=== PATIENT | male | born 1970 | race Caucasian/White ===

== ENCOUNTER 2024-07-19 20:16 | Emergency (ER) | payer BC ==
--- OUTSIDE RECORDS SUMMARY | 2024-07-19 20:22 | XMS REPORT | Continuity of Care Document ---
Author Name Unknown Address [address] [facility] [address] [place] [address] [facility] Address [address] [facility] [place] [address] Care Team Providers Care Last Sorter Name Role Phone Cody Mcgowan MD Primary Care Physician [phone] LAB90 Attending Clinician Unavailable LEODAN MONTENEGRO Attending Clinician Unavailable VIOLETTE STEPHENS Attending Clinician Unavailable MD LIZA Attending Clinician Unavailab CARLITOS Man Attending Clinician Unavailab ALMA Darling Attending Clinician Unavaila ble LAB47 Attending Clinician Unavailable EMERSON BENITEZ Attending Clinician Unavailab isaac Duncan Attending Clinician UnavailAmanda Avelar Attending Clinician [phone] Leonard Rodriguez Attending Clinician Unavailable Amanda Fam Attending Clinician Unavailab Leodan Fofana Attending Clinician [phone] Tony GONZALES, Jessica Attending Clinicia n SWAB, CK COVID SELF Attending Clinician Unavaila ble [id number] Attending Clinician Unavailable Jim GONZALES, Kristopher Madden Attending Clinician [phone] ISIDRA CROSS Attending Clinician Unavail able Isidra Cross PA-C Attending Clinician [phone] [id number] Attending Clinician Unavailable TESTING, PL JOHN Attending Clinician UnavailKatheryn Mo PA-C Attending Clinician [phone] Violette Stephens MD Attending Clinician [phone] KATHERYN PORTILLO Attending Clinician Unavailable HEIDI_Shashank_Marium_ Admitting Clinician UnavailAmanda Avelar Admitting Clinician Unavailab le Physician, No Primary or Family Admitting Clinic evonne Unavailable Payers Payer Name Policy Type Policy Number Effective Date Expirati on Date Source BCBS 2 [id number] 2019 00:00[place] [id number] 2019 00:00:00 Problems Condition Name Condition Details Condition Category Status Onset Date Resolution Date Last Treatment Date Treating Clinician Comments Source Prediabete s Prediabete s Disease Active 2022-04 2- 00:00: 00 Tash Macybold - Externa l Closed fracture of calcaneus bone of right foot Closed Fracture of Calcaneus Bone of Right Foot Problem Active 8-15 00:00: 00 [facility] Acquired trigger finger of right ring finger Acquired Trigger Finger of Right Ring Finger Problem Active 5-19 00:00: 00 [facility] Acquired trigger finger Acquired Trigger Finger Problem Active 2-21 00:00: 00 [facility] Trigger thumb of right hand Trigger Thumb of Right Hand Problem Active 2-18 00:00: 00 [facility] Overweight (BMI 25.0-29.9) Overweight (BMI 25.0-29.9) Disease Active 12-21 00:00: 00 Tash Whitmore - Externa l Low back strain Low Back Strain Problem Active 07-16 00:00: 00 [facility] Fracture of bone Fracture of Bone Problem Active 04-30 00:00: 00 [facility] Closed fracture of base of neck of femur Closed Fracture of Base of Neck of Femur Problem Active 2016-04 00:00: 00 [facility] Lateral epicondyli tis Lateral Epicondyli tis Problem Active 2012-04 00:00: 00 [facility] Allergies, Adverse Reactions, Alerts Allergy Name Allergy Type Status Severity Reaction(s) Onset Date Inactive Date Treating Clinician Comments Source meloxica m DA Active NM ITCHING, RASH. 12-24 00:00: 00 [facility] meloxica m DA Active NM ITCHING, RASH. 12-05 00:00: 00 [facility] Meloxica m Propensi ty to adverse reaction s Active 12-21 00:00: 00 Flushed and anxious feeling Tash Whitmore Meloxica m Propensi ty to adverse reaction s Active 12-21 00:00: 00 Flushed and anxious feeling Tash Galvana l meloxica m DA Active SV HIVES 2014-04 00:00: 00 [facility] Meloxica m Allergy to substanc e Active [facility] No Known Drug Allergie s MA Active UNKNOWN [facility] Social History Social Habit Start Date Stop Date Quantity Comments Source Sexual orientation 2020-03-01 09:58:04 Heterosexual (finding) Tash Whitmore - External History of tobacco use Cigar Smoker Tash Whitmore - External History SDOH Alcohol Frequency Tash tran - External History SDOH Alcohol Std Drinks Tash adames - External History SDOH Alcohol Binge Tash Whitmore - External Exposure to SARS-CoV-2 (event) Yes Tash adames Alcohol intake 2023-04-12 00:00:00 2023-04-12 00:00:00 Current drinker of alcohol (finding) Tash Whitmore - [place] History of Social function 2022-09-15 00:00:00 2022-09-15 00:00:00 Tash Whitmore - External Tobacco use and exposure 2022-09-11 00:00:00 2022-09-11 00:00:00 Smokeless tobacco non-user Tash Whitmore - External Alcohol Comment 2022-09-11 00:00:00 2022-09-11 00:00:00 social Tash Whitmore - External Tobacco Comment 2022-09-11 00:00:00 2022-09-11 00:00:00 special occ. Tash Whitmore - [place] Sex Assigned At 1970 00:00:00 1970 00:00:00 M Tash Whitmore - [place] Smoking Status Start Date Stop Date Source Light tobacco smoker 2022-09-11 00:00:00 Tash Whitmore - External Medications Ordered Medication Name Filled Medication Name Start Date Stop Date Current Medication? Ordering Clinician Indication Dosage Frequency Signature (SIG) Comments Components Source Orphenadrin e Citrate CR 100 MG oral Tablet 12 Hour Sustained Release 2022-04 14:25: 05 04-12 00:00 :00 No RX by other MD Tash knowles Zolpidem Tartrate 10 MG oral Tablet 2022-04 14:25: 05 04-12 00:00 :00 No 10mg Take 1 tablet (10 mg total) by mouth daily. Tash knowles Anastrozole 1 MG oral Tablet 2022-04 14:24: 33 04-12 00:00 :00 No TAKE 1/2 TAB BY MOUTH 24-48 HOURS AFTER WEEKLY INJECTION. Tash knowles Omeprazole 20 MG oral Delayed Release Capsule 09-26 00:00: 00 04-12 00:00 :00 No [id number] 20mg Take 1 capsule (20 mg total) by mouth 2 times daily for 14 days Tash knowles Bismuth Subsalicyla te 262 MG oral Tablet 09-26 00:00: 00 04-12 00:00 :00 No [id number] 1{tbl} Take 1 tablet by mouth 2 times daily Tash knowles Benzonatate (Tessalon Perles) 100 MG oral Capsule - 00:00: 00 Yes [id number] 100mg [id number] 3D Take 1 capsule (100 mg total) by mouth 3 times daily as needed for cough Tash knowles Cetirizine- Pseudoephed rine 5-120 MG oral Tablet 12 Hour Sustained Release 11-29 00:00: 00 Yes [id number] 1{tbl} Take 1 tablet by mouth 2 times daily Tash knowles Celecoxib 200 MG oral Capsule 05-09 00:00: 00 Yes [id number] TAKE 1 CAPSULE(20 0 MG) BY MOUTH TWICE DAILY Tash knowles Celecoxib 200 MG oral Capsule 2020-04- 00:00: 00 Yes [id number] TAKE 1 CAPSULE(20 0 MG) BY MOUTH TWICE DAILY Tash Whitmore methylPREDN ISolone 4 MG oral Tablet Therapy Pack 2020-04 00:00: 00 Yes [id number] 1{gamaliel} Take 1 gamaliel by mouth See Admin Instructio ns Use as directed Tash Whitmore Celecoxib (CeleBREX) 200 MG oral Capsule 2020-04 00:00: 00 Yes [id number] 200mg Take 1 capsule (200 mg total) by mouth 2 times daily Tash Whitmore Pantoprazol e Sodium 20 MG oral Tablet Delayed Response 2020-04 00:00: 00 04-12 00:00 :00 No [id number] TAKE 1 TABLET BY MOUTH EVERY DAY Tash knowles FLUTICASONE PROPIONATE, NASAL, 50 MCG/ACT nasal Suspension 12-03 00:00: 00 Yes [id number] 50ug Use 1 spray (50 mcg total) in each nostril daily Tash knowles Pantoprazol e Sodium 20 MG oral Tablet Delayed Response 12-03 00:00: 00 Yes [id number] 20mg Take 1 tablet (20 mg total) by mouth daily Tash Whitmore tramadol 50 mg tablet 1 PO Q 4HRS PRN PAIN tramadol 50 mg tablet 1 PO Q 4HRS PRN PAIN 2016-04 00:00: 00 No tramadol 50 mg tablet 1 PO Q 4HRS PRN PAIN [facility] tramadol 50 mg tablet 1 PO Q 4HRS PRN PAIN tramadol 50 mg tablet 1 PO Q 4HRS PRN PAIN 2016-04 00:00: 00 No tramadol 50 mg tablet 1 PO Q 4HRS PRN PAIN [facility] tramadol 50 mg tablet 1 PO Q 4HRS PRN PAIN tramadol 50 mg tablet 1 PO Q 4HRS PRN PAIN 2016-04 00:00: 00 No tramadol 50 mg tablet 1 PO Q 4HRS PRN PAIN [facility] tramadol 50 mg tablet 1 PO Q 4HRS PRN PAIN tramadol 50 mg tablet 1 PO Q 4HRS PRN PAIN 2016-04 00:00: 00 No tramadol 50 mg tablet 1 PO Q 4HRS PRN PAIN [facility] tramadol 50 mg tablet 1 PO Q 4HRS PRN PAIN tramadol 50 mg tablet 1 PO Q 4HRS PRN PAIN 2016-04 00:00: 00 No tramadol 50 mg tablet 1 PO Q 4HRS PRN PAIN [facility] tramadol 50 mg tablet 1 PO Q 4HRS PRN PAIN tramadol 50 mg tablet 1 PO Q 4HRS PRN PAIN 2016-04 00:00: 00 No tramadol 50 mg tablet 1 PO Q 4HRS PRN PAIN [facility] tramadol 50 mg tablet 1 PO Q 4HRS PRN PAIN tramadol 50 mg tablet 1 PO Q 4HRS PRN PAIN 2016-04 00:00: 00 No tramadol 50 mg tablet 1 PO Q 4HRS PRN PAIN [facility] Voltaren 1 % topical gel apply topically, pea sized amt, to left elbow, 4X/day, not to exceed 8gm/day Voltaren 1 % topical gel apply topically, pea sized amt, to left elbow, 4X/day, not to exceed 8gm/day 2012-04 00:00: 00 No Voltaren 1 % topical gel apply topically, pea sized amt, to left elbow, 4X/day, not to exceed 8gm/day [facility] Voltaren 1 % topical gel apply topically, pea sized amt, to left elbow, 4X/day, not to exceed 8gm/day Voltaren 1 % topical gel apply topically, pea sized amt, to left elbow, 4X/day, not to exceed 8gm/day 2012-04 00:00: 00 No Voltaren 1 % topical gel apply topically, pea sized amt, to left elbow, 4X/day, not to exceed 8gm/day [facility] Voltaren 1 % topical gel apply topically, pea sized amt, to left elbow, 4X/day, not to exceed 8gm/day Voltaren 1 % topical gel apply topically, pea sized amt, to left elbow, 4X/day, not to exceed 8gm/day 2012-04 00:00: 00 No Voltaren 1 % topical gel apply topically, pea sized amt, to left elbow, 4X/day, not to exceed 8gm/day [facility] Voltaren 1 % topical gel apply topically, pea sized amt, to left elbow, 4X/day, not to exceed 8gm/day Voltaren 1 % topical gel apply topically, pea sized amt, to left elbow, 4X/day, not to exceed 8gm/day 2012-04 00:00: 00 No Voltaren 1 % topical gel apply topically, pea sized amt, to left elbow, 4X/day, not to exceed 8gm/day [facility] Voltaren 1 % topical gel apply topically, pea sized amt, to left elbow, 4X/day, not to exceed 8gm/day Voltaren 1 % topical gel apply topically, pea sized amt, to left elbow, 4X/day, not to exceed 8gm/day 2012-04 00:00: 00 No Voltaren 1 % topical gel apply topically, pea sized amt, to left elbow, 4X/day, not to exceed 8gm/day [facility] Voltaren 1 % topical gel apply topically, pea sized amt, to left elbow, 4X/day, not to exceed 8gm/day Voltaren 1 % topical gel apply topically, pea sized amt, to left elbow, 4X/day, not to exceed 8gm/day 2012-04 00:00: 00 No Voltaren 1 % topical gel apply topically, pea sized amt, to left elbow, 4X/day, not to exceed 8gm/day [facility] Voltaren 1 % topical gel apply topically, pea sized amt, to left elbow, 4X/day, not to exceed 8gm/day Voltaren 1 % topical gel apply topically, pea sized amt, to left elbow, 4X/day, not to exceed 8gm/day 2012-04 00:00: 00 No Voltaren 1 % topical gel apply topically, pea sized amt, to left elbow, 4X/day, not to exceed 8gm/day [facility] azithromyci n 250 mg tablet TAKE 2 TABLETS BY MOUTH FOR 1 DAY THEN TAKE 1 TABLET BY MOUTH DAILY FOR 4 DAYS THEREAFTER azithromyci n 250 mg tablet TAKE 2 TABLETS BY MOUTH FOR 1 DAY THEN TAKE 1 TABLET BY MOUTH DAILY FOR 4 DAYS THEREAFTER No azithromyc in 250 mg tablet TAKE 2 TABLETS BY MOUTH FOR 1 DAY THEN TAKE 1 TABLET BY MOUTH DAILY FOR 4 DAYS THEREAFTER [facility] bromphenira mine-pseudo ephedrine-D M 2 mg-30 mg-10 mg/5 mL oral syrup TAKE 10 ML BY MOUTH 4 TIMES DAILY NEEDED bromphenira mine-pseudo ephedrine-D M 2 mg-30 mg-10 mg/5 mL oral syrup TAKE 10 ML BY MOUTH 4 TIMES DAILY NEEDED No bromphenir amine-pseu doephedrin e-DM 2 mg-30 mg-10 mg/5 mL oral syrup TAKE 10 ML BY MOUTH 4 TIMES DAILY NEEDED [facility] cephalexin 500 mg capsule cephalexin 500 mg capsule No cephalexin 500 mg capsule [facility] Clenpiq 10 mg-3.5 gram-12 gram/160 mL oral solution INSTRUCTION GIVEN TO PATIENT IN CLINIC. USE DIRECTED BY PROVIDER DURING OFFICE VISIT. Clenpiq 10 mg-3.5 gram-12 gram/160 mL oral solution INSTRUCTION GIVEN TO PATIENT IN CLINIC. USE DIRECTED BY PROVIDER DURING OFFICE VISIT. No Clenpiq 10 mg-3.5 gram-12 gram/160 mL oral solution INSTRUCTIO N GIVEN TO PATIENT IN CLINIC. USE DIRECTED BY PROVIDER DURING OFFICE VISIT. [facility] doxycycline hyclate 100 mg tablet TAKE 1 TABLET BY MOUTH 2 TIMES DAILY doxycycline hyclate 100 mg tablet TAKE 1 TABLET BY MOUTH 2 TIMES DAILY No doxycyclin e hyclate 100 mg tablet TAKE 1 TABLET BY MOUTH 2 TIMES DAILY [facility] hydrocodone 5 mg-acetamin ophen 325 mg tablet hydrocodone 5 mg-acetamin ophen 325 mg tablet No hydrocodon e 5 mg-acetami nophen 325 mg tablet [facility] hydrocodone 7.5 mg-acetamin ophen 325 mg tablet Take 1 tablet every 6 hours by oral route as needed. hydrocodone 7.5 mg-acetamin ophen 325 mg tablet Take 1 tablet every 6 hours by oral route as needed. No hydrocodon e 7.5 mg-acetami nophen 325 mg tablet Take 1 tablet every 6 hours by oral route as needed. [facility] methocarbam ol 500 mg tablet TAKE 1 TABLET BY MOUTH EVERY 8 HOURS NEEDED FOR MUSCLE SPASMS methocarbam ol 500 mg tablet TAKE 1 TABLET BY MOUTH EVERY 8 HOURS NEEDED FOR MUSCLE SPASMS No methocarba mol 500 mg tablet TAKE 1 TABLET BY MOUTH EVERY 8 HOURS NEEDED FOR MUSCLE SPASMS [facility] methylpredn isolone 4 mg tablets in a dose pack USE DIRECTED methylpredn isolone 4 mg tablets in a dose pack USE DIRECTED No methylpred nisolone 4 mg tablets in a dose pack USE DIRECTED [facility] Paxlovid 300 mg (150 mg x 2)-100 mg tablets in a dose pack (EUA) TAKE 2 NIRMATRELVI R TABLETS AND 1 RITONAVIR TABLET TOGETHER BY MOUTH TWICE DAILY FOR 5 DAYS Paxlovid 300 mg (150 mg x 2)-100 mg tablets in a dose pack (EUA) TAKE 2 NIRMATRELVI R TABLETS AND 1 RITONAVIR TABLET TOGETHER BY MOUTH TWICE DAILY FOR 5 DAYS No Paxlovid 300 mg (150 mg x 2)-100 mg tablets in a dose pack (EUA) TAKE 2 NIRMATRELV IR TABLETS AND 1 RITONAVIR TABLET TOGETHER BY MOUTH TWICE DAILY FOR 5 DAYS [facility] Wal-Zyr D 5 mg-120 mg tablet,exte nded release TAKE 1 TABLET BY MOUTH TWICE DAILY Wal-Zyr D 5 mg-120 mg tablet,exte nded release TAKE 1 TABLET BY MOUTH TWICE DAILY No Wal-Zyr D 5 mg-120 mg tablet,ext ended release TAKE 1 TABLET BY MOUTH TWICE DAILY [facility] azithromyci n 250 mg tablet TAKE 2 TABLETS BY MOUTH FOR 1 DAY THEN TAKE 1 TABLET BY MOUTH DAILY FOR 4 DAYS THEREAFTER azithromyci n 250 mg tablet TAKE 2 TABLETS BY MOUTH FOR 1 DAY THEN TAKE 1 TABLET BY MOUTH DAILY FOR 4 DAYS THEREAFTER No azithromyc in 250 mg tablet TAKE 2 TABLETS BY MOUTH FOR 1 DAY THEN TAKE 1 TABLET BY MOUTH DAILY FOR 4 DAYS THEREAFTER [facility] bromphenira mine-pseudo ephedrine-D M 2 mg-30 mg-10 mg/5 mL oral syrup TAKE 10 ML BY MOUTH 4 TIMES DAILY NEEDED bromphenira mine-pseudo ephedrine-D M 2 mg-30 mg-10 mg/5 mL oral syrup TAKE 10 ML BY MOUTH 4 TIMES DAILY NEEDED No bromphenir amine-pseu doephedrin e-DM 2 mg-30 mg-10 mg/5 mL oral syrup TAKE 10 ML BY MOUTH 4 TIMES DAILY NEEDED [facility] Clenpiq 10 mg-3.5 gram-12 gram/160 mL oral solution INSTRUCTION GIVEN TO PATIENT IN CLINIC. USE DIRECTED BY PROVIDER DURING OFFICE VISIT. Clenpiq 10 mg-3.5 gram-12 gram/160 mL oral solution INSTRUCTION GIVEN TO PATIENT IN CLINIC. USE DIRECTED BY PROVIDER DURING OFFICE VISIT. No Clenpiq 10 mg-3.5 gram-12 gram/160 mL oral solution INSTRUCTIO N GIVEN TO PATIENT IN CLINIC. USE DIRECTED BY PROVIDER DURING OFFICE VISIT. [facility] doxycycline hyclate 100 mg tablet TAKE 1 TABLET BY MOUTH 2 TIMES DAILY doxycycline hyclate 100 mg tablet TAKE 1 TABLET BY MOUTH 2 TIMES DAILY No doxycyclin e hyclate 100 mg tablet TAKE 1 TABLET BY MOUTH 2 TIMES DAILY [facility] hydrocodone 5 mg-acetamin ophen 325 mg tablet hydrocodone 5 mg-acetamin ophen 325 mg tablet No hydrocodon e 5 mg-acetami nophen 325 mg tablet [facility] hydrocodone 7.5 mg-acetamin ophen 325 mg tablet Take 1 tablet every 6 hours by oral route. hydrocodone 7.5 mg-acetamin ophen 325 mg tablet Take 1 tablet every 6 hours by oral route. No 1 Q6H hydrocodon e 7.5 mg-acetami nophen 325 mg tablet Take 1 tablet every 6 hours by oral route. [facility] methocarbam ol 500 mg tablet 1 PO Q 8 HRS PRN FOR MUSCLE SPASM methocarbam ol 500 mg tablet 1 PO Q 8 HRS PRN FOR MUSCLE SPASM No methocarba mol 500 mg tablet 1 PO Q 8 HRS PRN FOR MUSCLE SPASM [facility] methylpredn isolone 4 mg tablets in a dose pack USE DIRECTED methylpredn isolone 4 mg tablets in a dose pack USE DIRECTED No methylpred nisolone 4 mg tablets in a dose pack USE DIRECTED [facility] Paxlovid 300 mg (150 mg x 2)-100 mg tablets in a dose pack (EUA) TAKE 2 NIRMATRELVI R TABLETS AND 1 RITONAVIR TABLET TOGETHER BY MOUTH TWICE DAILY FOR 5 DAYS Paxlovid 300 mg (150 mg x 2)-100 mg tablets in a dose pack (EUA) TAKE 2 NIRMATRELVI R TABLETS AND 1 RITONAVIR TABLET TOGETHER BY MOUTH TWICE DAILY FOR 5 DAYS No Paxlovid 300 mg (150 mg x 2)-100 mg tablets in a dose pack (EUA) TAKE 2 NIRMATRELV IR TABLETS AND 1 RITONAVIR TABLET TOGETHER BY MOUTH TWICE DAILY FOR 5 DAYS [facility] Wal-Zyr D 5 mg-120 mg tablet,exte nded release TAKE 1 TABLET BY MOUTH TWICE DAILY Wal-Zyr D 5 mg-120 mg tablet,exte nded release TAKE 1 TABLET BY MOUTH TWICE DAILY No Wal-Zyr D 5 mg-120 mg tablet,ext ended release TAKE 1 TABLET BY MOUTH TWICE DAILY [facility] azithromyci n 250 mg tablet TAKE 2 TABLETS BY MOUTH FOR 1 DAY THEN TAKE 1 TABLET BY MOUTH DAILY FOR 4 DAYS THEREAFTER azithromyci n 250 mg tablet TAKE 2 TABLETS BY MOUTH FOR 1 DAY THEN TAKE 1 TABLET BY MOUTH DAILY FOR 4 DAYS THEREAFTER No azithromyc in 250 mg tablet TAKE 2 TABLETS BY MOUTH FOR 1 DAY THEN TAKE 1 TABLET BY MOUTH DAILY FOR 4 DAYS THEREAFTER [facility] bromphenira mine-pseudo ephedrine-D M 2 mg-30 mg-10 mg/5 mL oral syrup TAKE 10 ML BY MOUTH 4 TIMES DAILY NEEDED bromphenira mine-pseudo ephedrine-D M 2 mg-30 mg-10 mg/5 mL oral syrup TAKE 10 ML BY MOUTH 4 TIMES DAILY NEEDED No bromphenir amine-pseu doephedrin e-DM 2 mg-30 mg-10 mg/5 mL oral syrup TAKE 10 ML BY MOUTH 4 TIMES DAILY NEEDED [facility] Clenpiq 10 mg-3.5 gram-12 gram/160 mL oral solution INSTRUCTION GIVEN TO PATIENT IN CLINIC. USE DIRECTED BY PROVIDER DURING OFFICE VISIT. Clenpiq 10 mg-3.5 gram-12 gram/160 mL oral solution INSTRUCTION GIVEN TO PATIENT IN CLINIC. USE DIRECTED BY PROVIDER DURING OFFICE VISIT. No Clenpiq 10 mg-3.5 gram-12 gram/160 mL oral solution INSTRUCTIO N GIVEN TO PATIENT IN CLINIC. USE DIRECTED BY PROVIDER DURING OFFICE VISIT. [facility] doxycycline hyclate 100 mg tablet TAKE 1 TABLET BY MOUTH 2 TIMES DAILY doxycycline hyclate 100 mg tablet TAKE 1 TABLET BY MOUTH 2 TIMES DAILY No doxycyclin e hyclate 100 mg tablet TAKE 1 TABLET BY MOUTH 2 TIMES DAILY [facility] hydrocodone 5 mg-acetamin ophen 325 mg tablet hydrocodone 5 mg-acetamin ophen 325 mg tablet No hydrocodon e 5 mg-acetami nophen 325 mg tablet [facility] hydrocodone 7.5 mg-acetamin ophen 325 mg tablet Take 1 tablet every 6 hours by oral route. hydrocodone 7.5 mg-acetamin ophen 325 mg tablet Take 1 tablet every 6 hours by oral route. No 1 Q6H hydrocodon e 7.5 mg-acetami nophen 325 mg tablet Take 1 tablet every 6 hours by oral route. [facility] methocarbam ol 500 mg tablet TAKE 1 TABLET BY MOUTH EVERY 8 HOURS NEEDED FOR MUSCLE SPASMS methocarbam ol 500 mg tablet TAKE 1 TABLET BY MOUTH EVERY 8 HOURS NEEDED FOR MUSCLE SPASMS No methocarba mol 500 mg tablet TAKE 1 TABLET BY MOUTH EVERY 8 HOURS NEEDED FOR MUSCLE SPASMS [facility] methylpredn isolone 4 mg tablets in a dose pack USE DIRECTED methylpredn isolone 4 mg tablets in a dose pack USE DIRECTED No methylpred nisolone 4 mg tablets in a dose pack USE DIRECTED [facility] Paxlovid 300 mg (150 mg x 2)-100 mg tablets in a dose pack (EUA) TAKE 2 NIRMATRELVI R TABLETS AND 1 RITONAVIR TABLET TOGETHER BY MOUTH TWICE DAILY FOR 5 DAYS Paxlovid 300 mg (150 mg x 2)-100 mg tablets in a dose pack (EUA) TAKE 2 NIRMATRELVI R TABLETS AND 1 RITONAVIR TABLET TOGETHER BY MOUTH TWICE DAILY FOR 5 DAYS No Paxlovid 300 mg (150 mg x 2)-100 mg tablets in a dose pack (EUA) TAKE 2 NIRMATRELV IR TABLETS AND 1 RITONAVIR TABLET TOGETHER BY MOUTH TWICE DAILY FOR 5 DAYS [facility] Wal-Zyr D 5 mg-120 mg tablet,exte nded release TAKE 1 TABLET BY MOUTH TWICE DAILY Wal-Zyr D 5 mg-120 mg tablet,exte nded release TAKE 1 TABLET BY MOUTH TWICE DAILY No Wal-Zyr D 5 mg-120 mg tablet,ext ended release TAKE 1 TABLET BY MOUTH TWICE DAILY [facility] azithromyci n 250 mg tablet TAKE 2 TABLETS BY MOUTH FOR 1 DAY THEN TAKE 1 TABLET BY MOUTH DAILY FOR 4 DAYS THEREAFTER azithromyci n 250 mg tablet TAKE 2 TABLETS BY MOUTH FOR 1 DAY THEN TAKE 1 TABLET BY MOUTH DAILY FOR 4 DAYS THEREAFTER No azithromyc in 250 mg tablet TAKE 2 TABLETS BY MOUTH FOR 1 DAY THEN TAKE 1 TABLET BY MOUTH DAILY FOR 4 DAYS THEREAFTER [facility] bromphenira mine-pseudo ephedrine-D M 2 mg-30 mg-10 mg/5 mL oral syrup TAKE 10 ML BY MOUTH 4 TIMES DAILY NEEDED bromphenira mine-pseudo ephedrine-D M 2 mg-30 mg-10 mg/5 mL oral syrup TAKE 10 ML BY MOUTH 4 TIMES DAILY NEEDED No bromphenir amine-pseu doephedrin e-DM 2 mg-30 mg-10 mg/5 mL oral syrup TAKE 10 ML BY MOUTH 4 TIMES DAILY NEEDED [facility] Clenpiq 10 mg-3.5 gram-12 gram/160 mL oral solution INSTRUCTION GIVEN TO PATIENT IN CLINIC. USE DIRECTED BY PROVIDER DURING OFFICE VISIT. Clenpiq 10 mg-3.5 gram-12 gram/160 mL oral solution INSTRUCTION GIVEN TO PATIENT IN CLINIC. USE DIRECTED BY PROVIDER DURING OFFICE VISIT. No Clenpiq 10 mg-3.5 gram-12 gram/160 mL oral solution INSTRUCTIO N GIVEN TO PATIENT IN CLINIC. USE DIRECTED BY PROVIDER DURING OFFICE VISIT. [facility] doxycycline hyclate 100 mg tablet TAKE 1 TABLET BY MOUTH 2 TIMES DAILY doxycycline hyclate 100 mg tablet TAKE 1 TABLET BY MOUTH 2 TIMES DAILY No doxycyclin e hyclate 100 mg tablet TAKE 1 TABLET BY MOUTH 2 TIMES DAILY [facility] hydrocodone 5 mg-acetamin ophen 325 mg tablet hydrocodone 5 mg-acetamin ophen 325 mg tablet No hydrocodon e 5 mg-acetami nophen 325 mg tablet [facility] hydrocodone 7.5 mg-acetamin ophen 325 mg tablet Take 1 tablet every 6 hours by oral route as needed. hydrocodone 7.5 mg-acetamin ophen 325 mg tablet Take 1 tablet every 6 hours by oral route as needed. No 1 Q6H hydrocodon e 7.5 mg-acetami nophen 325 mg tablet Take 1 tablet every 6 hours by oral route as needed. [facility] methocarbam ol 500 mg tablet TAKE 1 TABLET BY MOUTH EVERY 8 HOURS NEEDED FOR MUSCLE SPASMS methocarbam ol 500 mg tablet TAKE 1 TABLET BY MOUTH EVERY 8 HOURS NEEDED FOR MUSCLE SPASMS No methocarba mol 500 mg tablet TAKE 1 TABLET BY MOUTH EVERY 8 HOURS NEEDED FOR MUSCLE SPASMS [facility] methylpredn isolone 4 mg tablets in a dose pack USE DIRECTED methylpredn isolone 4 mg tablets in a dose pack USE DIRECTED No methylpred nisolone 4 mg tablets in a dose pack USE DIRECTED [facility] Paxlovid 300 mg (150 mg x 2)-100 mg tablets in a dose pack (EUA) TAKE 2 NIRMATRELVI R TABLETS AND 1 RITONAVIR TABLET TOGETHER BY MOUTH TWICE DAILY FOR 5 DAYS Paxlovid 300 mg (150 mg x 2)-100 mg tablets in a dose pack (EUA) TAKE 2 NIRMATRELVI R TABLETS AND 1 RITONAVIR TABLET TOGETHER BY MOUTH TWICE DAILY FOR 5 DAYS No Paxlovid 300 mg (150 mg x 2)-100 mg tablets in a dose pack (EUA) TAKE 2 NIRMATRELV IR TABLETS AND 1 RITONAVIR TABLET TOGETHER BY MOUTH TWICE DAILY FOR 5 DAYS [facility] Wal-Zyr D 5 mg-120 mg tablet,exte nded release TAKE 1 TABLET BY MOUTH TWICE DAILY Wal-Zyr D 5 mg-120 mg tablet,exte nded release TAKE 1 TABLET BY MOUTH TWICE DAILY No Wal-Zyr D 5 mg-120 mg tablet,ext ended release TAKE 1 TABLET BY MOUTH TWICE DAILY [facility] Ambien 10 mg tablet Take 1 tablet every day by oral route. Ambien 10 mg tablet Take 1 tablet every day by oral route. No 1 Q1D Ambien 10 mg tablet Take 1 tablet every day by oral route. [facility] cephalexin 500 mg capsule cephalexin 500 mg capsule No cephalexin 500 mg capsule [facility] azithromyci n 250 mg tablet TAKE 2 TABLETS BY MOUTH FOR 1 DAY THEN TAKE 1 TABLET BY MOUTH DAILY FOR 4 DAYS THEREAFTER azithromyci n 250 mg tablet TAKE 2 TABLETS BY MOUTH FOR 1 DAY THEN TAKE 1 TABLET BY MOUTH DAILY FOR 4 DAYS THEREAFTER No azithromyc in 250 mg tablet TAKE 2 TABLETS BY MOUTH FOR 1 DAY THEN TAKE 1 TABLET BY MOUTH DAILY FOR 4 DAYS THEREAFTER [facility] bromphenira mine-pseudo ephedrine-D M 2 mg-30 mg-10 mg/5 mL oral syrup TAKE 10 ML BY MOUTH 4 TIMES DAILY NEEDED bromphenira mine-pseudo ephedrine-D M 2 mg-30 mg-10 mg/5 mL oral syrup TAKE 10 ML BY MOUTH 4 TIMES DAILY NEEDED No bromphenir amine-pseu doephedrin e-DM 2 mg-30 mg-10 mg/5 mL oral syrup TAKE 10 ML BY MOUTH 4 TIMES DAILY NEEDED [facility] cephalexin 500 mg capsule cephalexin 500 mg capsule No cephalexin 500 mg capsule [facility] Clenpiq 10 mg-3.5 gram-12 gram/160 mL oral solution INSTRUCTION GIVEN TO PATIENT IN CLINIC. USE DIRECTED BY PROVIDER DURING OFFICE VISIT. Clenpiq 10 mg-3.5 gram-12 gram/160 mL oral solution INSTRUCTION GIVEN TO PATIENT IN CLINIC. USE DIRECTED BY PROVIDER DURING OFFICE VISIT. No Clenpiq 10 mg-3.5 gram-12 gram/160 mL oral solution INSTRUCTIO N GIVEN TO PATIENT IN CLINIC. USE DIRECTED BY PROVIDER DURING OFFICE VISIT. [facility] doxycycline hyclate 100 mg tablet TAKE 1 TABLET BY MOUTH 2 TIMES DAILY doxycycline hyclate 100 mg tablet TAKE 1 TABLET BY MOUTH 2 TIMES DAILY No doxycyclin e hyclate 100 mg tablet TAKE 1 TABLET BY MOUTH 2 TIMES DAILY [facility] hydrocodone 5 mg-acetamin ophen 325 mg tablet hydrocodone 5 mg-acetamin ophen 325 mg tablet No hydrocodon e 5 mg-acetami nophen 325 mg tablet [facility] hydrocodone 7.5 mg-acetamin ophen 325 mg tablet Take 1 tablet every 6 hours by oral route as needed. hydrocodone 7.5 mg-acetamin ophen 325 mg tablet Take 1 tablet every 6 hours by oral route as needed. No hydrocodon e 7.5 mg-acetami nophen 325 mg tablet Take 1 tablet every 6 hours by oral route as needed. [facility] methocarbam ol 500 mg tablet TAKE 1 TABLET BY MOUTH EVERY 8 HOURS NEEDED FOR MUSCLE SPASMS methocarbam ol 500 mg tablet TAKE 1 TABLET BY MOUTH EVERY 8 HOURS NEEDED FOR MUSCLE SPASMS No methocarba mol 500 mg tablet TAKE 1 TABLET BY MOUTH EVERY 8 HOURS NEEDED FOR MUSCLE SPASMS [facility] methylpredn isolone 4 mg tablets in a dose pack USE DIRECTED methylpredn isolone 4 mg tablets in a dose pack USE DIRECTED No methylpred nisolone 4 mg tablets in a dose pack USE DIRECTED [facility] Paxlovid 300 mg (150 mg x 2)-100 mg tablets in a dose pack (EUA) TAKE 2 NIRMATRELVI R TABLETS AND 1 RITONAVIR TABLET TOGETHER BY MOUTH TWICE DAILY FOR 5 DAYS Paxlovid 300 mg (150 mg x 2)-100 mg tablets in a dose pack (EUA) TAKE 2 NIRMATRELVI R TABLETS AND 1 RITONAVIR TABLET TOGETHER BY MOUTH TWICE DAILY FOR 5 DAYS No Paxlovid 300 mg (150 mg x 2)-100 mg tablets in a dose pack (EUA) TAKE 2 NIRMATRELV IR TABLETS AND 1 RITONAVIR TABLET TOGETHER BY MOUTH TWICE DAILY FOR 5 DAYS [facility] Wal-Zyr D 5 mg-120 mg tablet,exte nded release TAKE 1 TABLET BY MOUTH TWICE DAILY Wal-Zyr D 5 mg-120 mg tablet,exte nded release TAKE 1 TABLET BY MOUTH TWICE DAILY No Wal-Zyr D 5 mg-120 mg tablet,ext ended release TAKE 1 TABLET BY MOUTH [facility] azithromyci n 250 mg tablet TAKE 2 TABLETS BY MOUTH FOR 1 DAY THEN TAKE 1 TABLET BY MOUTH DAILY FOR 4 DAYS THEREAFTER azithromyci n 250 mg tablet TAKE 2 TABLETS BY MOUTH FOR 1 DAY THEN TAKE 1 TABLET BY MOUTH DAILY FOR 4 DAYS THEREAFTER No azithromyc in 250 mg tablet TAKE 2 TABLETS BY MOUTH FOR 1 DAY THEN TAKE 1 TABLET BY MOUTH DAILY FOR 4 DAYS THEREAFTER [facility] bromphenira mine-pseudo ephedrine-D M 2 mg-30 mg-10 mg/5 mL oral syrup TAKE 10 ML BY MOUTH 4 TIMES DAILY NEEDED bromphenira mine-pseudo ephedrine-D M 2 mg-30 mg-10 mg/5 mL oral syrup TAKE 10 ML BY MOUTH 4 TIMES DAILY NEEDED No bromphenir amine-pseu doephedrin e-DM 2 mg-30 mg-10 mg/5 mL oral syrup TAKE 10 ML BY MOUTH 4 TIMES DAILY NEEDED [facility] cephalexin 500 mg capsule cephalexin 500 mg capsule No cephalexin 500 mg capsule [facility] Clenpiq 10 mg-3.5 gram-12 gram/160 mL oral solution INSTRUCTION GIVEN TO PATIENT IN CLINIC. USE DIRECTED BY PROVIDER DURING OFFICE VISIT. Clenpiq 10 mg-3.5 gram-12 gram/160 mL oral solution INSTRUCTION GIVEN TO PATIENT IN CLINIC. USE DIRECTED BY PROVIDER DURING OFFICE VISIT. No Clenpiq 10 mg-3.5 gram-12 gram/160 mL oral solution INSTRUCTIO N GIVEN TO PATIENT IN CLINIC. USE DIRECTED BY PROVIDER DURING OFFICE VISIT. [facility] doxycycline hyclate 100 mg tablet TAKE 1 TABLET BY MOUTH 2 TIMES DAILY doxycycline hyclate 100 mg tablet TAKE 1 TABLET BY MOUTH 2 TIMES DAILY No doxycyclin e hyclate 100 mg tablet TAKE 1 TABLET BY MOUTH 2 TIMES DAILY [facility] hydrocodone 5 mg-acetamin ophen 325 mg tablet hydrocodone 5 mg-acetamin ophen 325 mg tablet No hydrocodon e 5 mg-acetami nophen 325 mg tablet [facility] hydrocodone 7.5 mg-acetamin ophen 325 mg tablet Take 1 tablet every 6 hours by oral route as needed. hydrocodone 7.5 mg-acetamin ophen 325 mg tablet Take 1 tablet every 6 hours by oral route as needed. No hydrocodon e 7.5 mg-acetami nophen 325 mg tablet Take 1 tablet every 6 hours by oral route as needed. [facility] methocarbam ol 500 mg tablet TAKE 1 TABLET BY MOUTH EVERY 8 HOURS NEEDED FOR MUSCLE SPASMS methocarbam ol 500 mg tablet TAKE 1 TABLET BY MOUTH EVERY 8 HOURS NEEDED FOR MUSCLE SPASMS No methocarba mol 500 mg tablet TAKE 1 TABLET BY MOUTH EVERY 8 HOURS NEEDED FOR MUSCLE SPASMS [facility] methylpredn isolone 4 mg tablets in a dose pack USE DIRECTED methylpredn isolone 4 mg tablets in a dose pack USE DIRECTED No methylpred nisolone 4 mg tablets in a dose pack USE DIRECTED [facility] Paxlovid 300 mg (150 mg x 2)-100 mg tablets in a dose pack (EUA) TAKE 2 NIRMATRELVI R TABLETS AND 1 RITONAVIR TABLET TOGETHER BY MOUTH TWICE DAILY FOR 5 DAYS Paxlovid 300 mg (150 mg x 2)-100 mg tablets in a dose pack (EUA) TAKE 2 NIRMATRELVI R TABLETS AND 1 RITONAVIR TABLET TOGETHER BY MOUTH TWICE DAILY FOR 5 DAYS No Paxlovid 300 mg (150 mg x 2)-100 mg tablets in a dose pack (EUA) TAKE 2 NIRMATRELV IR TABLETS AND 1 RITONAVIR TABLET TOGETHER BY MOUTH TWICE DAILY FOR 5 DAYS [facility] Wal-Zyr D 5 mg-120 mg tablet,exte nded release TAKE 1 TABLET BY MOUTH TWICE DAILY Wal-Zyr D 5 mg-120 mg tablet,exte nded release TAKE 1 TABLET BY MOUTH TWICE DAILY No Wal-Zyr D 5 mg-120 mg tablet,ext ended release TAKE 1 TABLET BY MOUTH TWICE DAILY [facility] azithromyci n 250 mg tablet TAKE 2 TABLETS BY MOUTH FOR 1 DAY THEN TAKE 1 TABLET BY MOUTH DAILY FOR 4 DAYS THEREAFTER azithromyci n 250 mg tablet TAKE 2 TABLETS BY MOUTH FOR 1 DAY THEN TAKE 1 TABLET BY MOUTH DAILY FOR 4 DAYS THEREAFTER No azithromyc in 250 mg tablet TAKE 2 TABLETS BY MOUTH FOR 1 DAY THEN TAKE 1 TABLET BY MOUTH DAILY FOR 4 DAYS THEREAFTER [facility] bromphenira mine-pseudo ephedrine-D M 2 mg-30 mg-10 mg/5 mL oral syrup TAKE 10 ML BY MOUTH 4 TIMES DAILY NEEDED bromphenira mine-pseudo ephedrine-D M 2 mg-30 mg-10 mg/5 mL oral syrup TAKE 10 ML BY MOUTH 4 TIMES DAILY NEEDED No bromphenir amine-pseu doephedrin e-DM 2 mg-30 mg-10 mg/5 mL oral syrup TAKE 10 ML BY MOUTH 4 TIMES DAILY NEEDED [facility] cephalexin 500 mg capsule cephalexin 500 mg capsule No cephalexin 500 mg capsule [facility] Clenpiq 10 mg-3.5 gram-12 gram/160 mL oral solution INSTRUCTION GIVEN TO PATIENT IN CLINIC. USE DIRECTED BY PROVIDER DURING OFFICE VISIT. Clenpiq 10 mg-3.5 gram-12 gram/160 mL oral solution INSTRUCTION GIVEN TO PATIENT IN CLINIC. USE DIRECTED BY PROVIDER DURING OFFICE VISIT. No Clenpiq 10 mg-3.5 gram-12 gram/160 mL oral solution INSTRUCTIO N GIVEN TO PATIENT IN CLINIC. USE DIRECTED BY PROVIDER DURING OFFICE VISIT. [facility] doxycycline hyclate 100 mg tablet TAKE 1 TABLET BY MOUTH 2 TIMES DAILY doxycycline hyclate 100 mg tablet TAKE 1 TABLET BY MOUTH 2 TIMES DAILY No doxycyclin e hyclate 100 mg tablet TAKE 1 TABLET BY MOUTH 2 TIMES DAILY [facility] hydrocodone 5 mg-acetamin ophen 325 mg tablet hydrocodone 5 mg-acetamin ophen 325 mg tablet No hydrocodon e 5 mg-acetami nophen 325 mg tablet [facility] hydrocodone 7.5 mg-acetamin ophen 325 mg tablet Take 1 tablet every 6 hours by oral route as needed. hydrocodone 7.5 mg-acetamin ophen 325 mg tablet Take 1 tablet every 6 hours by oral route as needed. No hydrocodon e 7.5 mg-acetami nophen 325 mg tablet Take 1 tablet every 6 hours by oral route as needed. [facility] methocarbam ol 500 mg tablet TAKE 1 TABLET BY MOUTH EVERY 8 HOURS NEEDED FOR MUSCLE SPASMS methocarbam ol 500 mg tablet TAKE 1 TABLET BY MOUTH EVERY 8 HOURS NEEDED FOR MUSCLE SPASMS No methocarba mol 500 mg tablet TAKE 1 TABLET BY MOUTH EVERY 8 HOURS NEEDED FOR MUSCLE SPASMS [facility] methylpredn isolone 4 mg tablets in a dose pack USE DIRECTED methylpredn isolone 4 mg tablets in a dose pack USE DIRECTED No methylpred nisolone 4 mg tablets in a dose pack USE DIRECTED [facility] Paxlovid 300 mg (150 mg x 2)-100 mg tablets in a dose pack (EUA) TAKE 2 NIRMATRELVI R TABLETS AND 1 RITONAVIR TABLET TOGETHER BY MOUTH TWICE DAILY FOR 5 DAYS Paxlovid 300 mg (150 mg x 2)-100 mg tablets in a dose pack (EUA) TAKE 2 NIRMATRELVI R TABLETS AND 1 RITONAVIR TABLET TOGETHER BY MOUTH TWICE DAILY FOR 5 DAYS No Paxlovid 300 mg (150 mg x 2)-100 mg tablets in a dose pack (EUA) TAKE 2 NIRMATRELV IR TABLETS AND 1 RITONAVIR TABLET TOGETHER BY MOUTH TWICE DAILY FOR 5 DAYS [facility] Wal-Zyr D 5 mg-120 mg tablet,exte nded release TAKE 1 TABLET BY MOUTH TWICE DAILY Wal-Zyr D 5 mg-120 mg tablet,exte nded release TAKE 1 TABLET BY MOUTH TWICE DAILY No Wal-Zyr D 5 mg-120 mg tablet,ext ended release TAKE 1 TABLET BY MOUTH TWICE DAILY [facility] Immunizations Ordered Immunization Name Filled Immunization Name Date Status Comments Source Influenza Virus Vaccine, No Preserv, age 6 months and up 2019-04-01 00:00:00 Completed Tash Seybold Influenza Virus Vaccine, No Preserv, age 6 months and up 2019-04-01 00:00:00 Completed Tash Whitmore - External Influenza Virus Vaccine, No Preserv, age 6 months and up 2019-04-01 00:00:00 Completed Tash Seybold Influenza Virus Vaccine, No Preserv, age 6 months and up 2019-04-01 00:00:00 Completed Tash Seybold Influenza Virus Vaccine, No Preserv, age 6 months and up 2019-04-01 00:00:00 Completed Tash Seybold Influenza Virus Vaccine, No Preserv, age 6 months and up 2019-04-01 00:00:00 Completed Tash Seybold Influenza Virus Vaccine, No Preserv, age 6 months and up 2019-04-01 00:00:00 Completed Tash Trotterold Tdap- (Boostrix, Adacel) 2017-12-21 00:00:00 Completed Tash Macybold Tdap- (Boostrix, Adacel) 2017-12-21 00:00:00 Completed Tash Trotterold - External Tdap- (Boostrix, Adacel) 2017-12-21 00:00:00 Completed Tash Macybold Tdap- (Boostrix, Adacel) 2017-12-21 00:00:00 Completed Tash Macybold Tdap- (Boostrix, Adacel) 2017-12-21 00:00:00 Completed Tash Macybold Tdap- (Boostrix, Adacel) 2017-12-21 00:00:00 Completed Tash Trotterold Tdap- (Boostrix, Adacel) 2017-12-21 00:00:00 Completed Tash Macybold Tdap- (Boostrix, Adacel) Unknown Completed Tash Macybold - External Influenza Virus Vaccine, No Preserv, age 6 months and up Unknown Completed Tash Macybold - External Vital Signs Vital Name Observation Time Observation Value Comments S ource Systolic blood pressure 2023-04-12 20:22:00 106 mm[Hg] Tash Seybo ld - External Diastolic blood pressure 2023-04-12 20:22:00 64 mm[Hg] Tash Seybo ld - External Heart rate 2023-04-12 20:22:00 64 /min Kelse y Seybold - External Body temperature 2023-04-12 20:22:00 35.72 Mela Tash Seybold - External Respiratory rate 2023-04-12 20:22:00 14 /min Tash Seybold - External Body height 2023-04-12 20:22:00 165.1 cm Madalyn ey Seybold - External Body weight 2023-04-12 20:22:00 91.173 kg Madalyn ey Seybold - External BMI 2023-04-12 20:22:00 33.45 kg/m2 Madalyn ey Seybold - External Systolic blood pressure 2022-04-04 15:24:00 108 mm[Hg] Tash Seybo ld - External Diastolic blood pressure 2022-04-04 15:24:00 68 mm[Hg] Tash Seybo ld - External Heart rate 2022-04-04 15:24:00 92 /min Kelse y Seybold - External Body temperature 2022-04-04 15:24:00 36.44 Mela Tash Seybold - External Respiratory rate 2022-04-04 15:24:00 16 /min Tash Seybold - External Body height 2022-04-04 15:24:00 165.7 cm Madalyn ey Seybold - External Body weight 2022-04-04 15:24:00 83.553 kg Madalyn ey Seybold - External BMI 2022-04-04 15:24:00 30.42 kg/m2 Madalyn ey Seybold - External Oxygen saturation in Arterial blood by Pulse oximetry 2022-04-04 15:24:00 97 /min Tash Trottero ld - External Height 2021-12-27 00:00:00 65 [in_i] [facility] Systolic blood pressure 2021-03-14 22:30:00 121 mm[Hg] Tash Seybo ld Diastolic blood pressure 2021-03-14 22:30:00 82 mm[Hg] Tash Seybo ld Heart rate 2021-03-14 22:30:00 78 /min Kelse y Seybold Body temperature 2021-03-14 22:30:00 36.44 Mela Tash Seybold Respiratory rate 2021-03-14 22:30:00 14 /min Tash Seybold Body height 2021-03-14 22:30:00 165.1 cm Madalyn ey Seybold Body weight 2021-03-14 22:30:00 90.719 kg Madalyn ey Seybold BMI 2021-03-14 22:30:00 33.28 kg/m2 Madalyn ey Seybold Systolic blood pressure 2021-02-09 21:01:00 106 mm[Hg] Tash Seybo ld Diastolic blood pressure 2021-02-09 21:01:00 67 mm[Hg] Tash Seybo ld Heart rate 2021-02-09 21:01:00 72 /min Kelse y Seybold Body temperature 2021-02-09 21:01:00 36.61 Mela Tash Seybold Respiratory rate 2021-02-09 21:01:00 16 /min Tash Seybold Body height 2021-02-09 21:01:00 165.1 cm Madalyn ey Seybold Body weight 2021-02-09 21:01:00 90.719 kg Madalyn ey Seybold BMI 2021-02-09 21:01:00 33.28 kg/m2 Madalyn ey Seybold Procedures Procedure Date / Time Performed Performing Clinicia n Source XR, ankle, 3 or more view 2022-02-20 00:00:00 [facility] XR, ankle, 3 or more view 2022-01-25 00:00:00 [facility] Open Reduction of Fracture of Calcaneus with Internal Fixation 2021-12-13 00:00:[address] [facility] [address], ankle + foot, w/o contrast 2021-12-05 00:00:00 [facility] Plan of Care Planned Activity Planned Date Details Comments Source Instructions [facility] Encounters Start Date/Time End Date/Time Encounter Type Admission Type Attending [facility] Care Department Encounter ID Source 2023-04-12 15:15:00 2023-04-12 15:15:00 Outpatient LAB90 TASH HUBER [id number] [facility] 2023-04-12 14:30:00 2023-04-12 14:30:00 Outpatient LEODAN MONTENEGRO [id number] [facility] 2022-12-15 12:30:00 2022-12-15 12:30:00 Outpatient LAB90 TASH HUBER [id number] [facility] 2022-12-05 00:00:00 2022-12-05 00:00:00 Outpatient VIOLETTE STEPHENS [id number] [facility] 2022-09-27 00:00:00 2022-09-27 00:00:00 Outpatient MD TASH CHENEY [id number] [facility] 2022-09-26 00:00:00 2022-09-26 00:00:00 Outpatient VIOLETTE STEPHENS [id number] [facility] 2022-09-21 00:00:00 2022-09-21 00:00:00 Outpatient VIOLETTE STEPHENS [id number] [facility] 2022-09-15 10:00:00 2022-09-15 10:00:00 Outpatient VIOLETTE STEPHENS [id number] [facility] 2022-09-15 00:00:00 2022-09-15 00:00:00 Outpatient CARLITOS SMITH [id number] [facility] 2022-09-07 00:00:00 2022-09-07 00:00:00 Outpatient VIOLETTE STEPHENS [id number] [facility] 2022-09-06 00:00:00 2022-09-06 00:00:00 Outpatient MD TASH CHENEY [id number] [facility] 2022-04-19 00:00:00 2022-04-19 00:00:00 Outpatient ALMA CAMPUZANO TASH HUBER [id number] [facility] 2022-04-04 10:00:00 2022-04-04 10:00:00 Outpatient LAB47 TASH HUBER [id number] [facility] 2022-04-04 09:15:00 2022-04-04 09:15:00 Outpatient EMMANUEL EMERSON TASH HUBER [id number] [facility] 2022-04-04 09:15:00 2022-04-04 09:15:00 Outpatient BRANDONLEILAEMERSON [id number] [facility] 2022-03-20 00:00:00 2022-03-20 00:00:00 Outpatient FOG_Patel_Precious Ward [facility] [id number] [facility] 2022-03-20 00:00:00 2022-03-20 00:00:00 Amanda Fam MD: [address] [place], [place] [address] , Ph. [phone] [facility] [place] [facility] [id number] [facility] 2022-02-20 00:00:00 2022-02-20 00:00:00 Outpatient HEIDI_Patel_Precious Ward [facility] [id number] [facility] 2022-02-20 00:00:00 2022-02-20 00:00:00 Amanda Fam MD: [address] [place] [phone] , Ph. [phone] [facility] [place] [facility] [id number] [facility] 2022-02-01 00:00:00 2022-02-01 00:00:00 Outpatient FOG_Patel_Precious Ward [facility] AO [id number] [facility] 2022-01-25 00:00:00 2022-01-25 00:00:00 Outpatient FOG_Patel_A Ed AO AO [id number] [facility] 2022-01-25 00:00:00 2022-01-25 00:00:00 Amanda Fam MD: [address] [id number] , Ph. [phone] [facility] [place] [facility] [address] [id number] [facility] 2022-01-24 00:00:00 2022-01-24 00:00:00 [facility] [id number] [facility] 2021-12-27 00:00:00 2021-12-27 00:00:00 [facility] [id number] [facility] 2021-12-27 00:00:00 2021-12-27 00:00:00 Outpatient Amanda Fam [facility] [id number] 2021-12-27 00:00:00 2021-12-27 00:00:00 Amanda Fam MD: [address] [place], [place] [address] , Ph. [phone] [facility] [place] [facility] [address] [place] [id number] [facility] 2021-12-24 11:18:00 2021-12-24 14:05:00 Emergency EM Leonard RodriguezTO KEIRY [id number] [facility] 2021-12-21 00:00:00 2021-12-21 00:00:00 Outpatient FOG_Patel_A Ed AO AO [id number] [facility] 2021-12-21 00:00:00 2021-12-21 00:00:00 Amanda Fam MD: [address] [place] [phone] , Ph. [phone] [facility] [place] [facility] [place] [facility] [id number] [facility] 2021-12-21 00:00:00 2021-12-21 00:00:00 Outpatient Amanda Fam [facility] AO [id number] 2021-12-19 00:00:00 2021-12-19 00:00:00 Outpatient FOG_Patel_A junior_ AO AO [id number] [facility] 2021-12-15 00:00:00 2021-12-15 00:00:00 Outpatient FOG_Patel_A junior_ AO AO [id number] [facility] 2021-12-13 09:00:00 2021-12-14 14:00:00 [facility] [id number] [facility] 2021-12-14 00:00:00 2021-12-14 00:00:00 Outpatient FOG_Patel_A junior_ AO AO [id number] [facility] 2021-12-13 00:00:00 2021-12-13 00:00:00 Outpatient FOG_Patel_A junior_ AO AO [id number] [facility] 2021-12-13 00:00:00 2021-12-13 00:00:00 Amanda Fam MD: [address] [place] [phone] , Ph. [phone] [facility] [place] [facility] [place] [facility] [id number] [facility] 2021-12-13 00:00:00 2021-12-13 00:00:00 Outpatient Amanda FamSM [facility] [id number] 2021-12-07 00:00:00 2021-12-07 00:00:00 Outpatient FOG_Patel_A junior_ [facility] AO [id number] [facility] 2021-12-06 00:00:00 2021-12-06 00:00:00 Outpatient FOG_Patel_A junior_ [facility] AO [id number] [facility] 2021-12-05 14:40:00 2021-12-05 14:40:00 Outpatient Amanda [facility] [id number] [facility] [place] [facility] 2021-12-05 00:00:00 2021-12-05 00:00:00 Outpatient FOG_Patel_A junior_ [facility] AO [id number] [facility] 2021-12-05 00:00:00 2021-12-05 00:00:00 Amanda Fam MD: [address] [place] [phone] , Ph. [phone] [facility] [place] [facility] [place] [facility] [id number] [facility] 2021-12-05 00:00:00 2021-12-05 00:00:00 Outpatient Amanda Fam [facility] AO [id number] 2021-11-29 09:00:00 2021-11-29 09:16:16 Telemedici Leodan Tran Jackson [id number] Tash Whitmore 2021-10-29 02:19:00 2021-10-29 02:19:00 Outpatient FOG_Patel_A junior_ [facility] AO [id number] [facility] 2021-10-04 10:10:00 2021-10-04 10:10:00 Outpatient FOG_Patel_A nay_MD [facility] AO [id number] [facility] 2021-09-16 04:57:00 2021-09-16 04:57:00 Outpatient FOG_Patel_A nay_MD [facility] [id number] [facility] 2021-05-10 12:30:00 2021-05-10 12:30:00 Outpatient VIOLETTE STEPHENS [id number] [facility] 2021-05-09 00:00:00 2021-05-09 00:00:00 Outpatient LEODAN MONTENEGRO [id number] [facility] 2021-05-06 16:30:00 2021-05-06 16:30:00 Outpatient LEODAN MONTENEGRO [id number] [facility] 2021-05-06 13:45:00 2021-05-06 14:00:00 [facility]ici [facility] [id number] [facility] 2021-05-05 16:10:00 2021-05-05 16:10:00 Outpatient SWAB, CK TASH HUBER [id number] [facility] 2021-05-05 16:05:00 2021-05-05 16:05:00 Outpatient [id number] TASH HUBER [id number] [facility] 2021-04-25 10:30:00 2021-04-25 10:30:00 Outpatient LEODAN MONTENEGRO [id number] [facility] 2021-04-25 08:30:00 2021-04-25 08:41:44 Telemedici ne Kristopher Fernandez [facility] 1..[id number] 0 [id number] T[facility] 2021-04-10 00:00:00 2021-04-10 00:00:00 Outpatient LEODAN MONTENEGRO TASH [id number] Tash Whitmore 2021-03-15 14:30:00 2021-03-15 14:30:00 Outpatient ISIDRA CROSS TASH [id number] [facility] 2021-03-14 16:30:00 2021-03-14 17:00:00 Office Visit Leodan Montenegro [id number] [id number] [id number] 0 [id number] Tash Whitmore 2021-03-07 16:03:19 2021-03-07 16:33:19 Telemedici Isidra Skinner [id number] 350.1.13.13 1.2.7.2.686 [id number] Tash Whitmore 2021-02-28 16:25:00 2021-02-28 16:25:00 Outpatient [id number] TASH TASH [id number] Tash Whitmore 2021-02-28 15:45:00 2021-02-28 15:45:00 Outpatient TESTING, PL TASH HUBER [id number] Tash Whitmore 2021-02-28 10:02:28 2021-02-28 10:06:12 E-Visit Katheryn Portillo [id number] [id number] 1.2.7.2.686 [id number] 0 [id number] Tash Whitmore 2021-02-09 15:49:46 2021-02-09 16:04:46 Office Visit Violette Stephens 1.2.840.114 350.1.13.13 1.2.7.2.686 [id number] Tash Whitmore 2020-12-03 14:15:00 2020-12-03 14:15:00 Outpatient [id number] TASH HUBER [id number] Tash Whitmore 2020-12-03 13:30:00 2020-12-03 13:30:00 Outpatient KATHERYN PORTILLO [id number] Tash Whitmore Results Test Description Test Time Test Comments Results Result Co mments Source Novel Coronavirus 2018 [id number] 01:50:00* Test Item Value Reference Range Interpretation Comme nts Novel Coronavirus 2018 Inhouse (test code = COVNONPUI) Positive Negative A Critical resul t [facility] at 0150 12/07/21Nurse read back result and tech confirmed it's correct? YPositive results are indicative of the presence ilGVTO-UgL-3 RNA, clinical correlation with patient historyand other diagnostic information is necessary to determinepatient infection status. Positive results do not rule outbacterial infection or co-infection with other viruses. Negative results do not preclude SARS-CoV-2 infection andshould not be used as the sole basis for patient managementdecisions. Negative results must be combined with otherclinical observations, patient history, and epidemiologicalinformation . Detection of SARS-CoV-2 RNA may be affected bysample collection methods, storage conditions, and/or stageof infection. Viral RNA mutations, vaccinations, antiviraltherapeutics, antibiotics, chemotherapeutic orimmunosuppressant drugs have not been evaluated for effectson detection. Results are for the identification of SARS-CoV-2 RNA usingreal-time (RT) polymerase chain reaction (PCR) technologyfor the qualitative detection of nucleic acids from quwITMU-XnU-2 virus and diagnosis of SARS-CoV-2 virusinfection. It is an Emergency Use Authorization (EUA) testauthorized by the U.S. FDA. BASIC METABOLIC [id number] 18:49:00* Test Item Value Reference Range Interpretation Comme nts SODIUM (test code = NA) 138 mmol/L 136-145 N POTASSIUM (test code = K) 4.4 mmol/L 3.5-5.1 N CHLORIDE (test code = CL) 101.0 mmol/L 98-107 N CARBON DIOXIDE (test code = CO2) 27.9 mmol/L 21-32 N GLUCOSE (test code = GLU) 82 mg/dL 70-110 N BLOOD UREA NITROGEN (test code = BUN) 11 mg/dL 7-18 N GLOMERULAR FILTRATION RATE (test code = GFR) 62.0 >60 Unit of m easure: mL/min/1.73 h1Ipyjxyycv Range:Healthy Adults >90 mL/min/1.73 m2 For Chronic Kidney Disease: Stage II Mild Decrease in GFR 60-90 Stage III Moderate Decrease in GFR 30-59 Stage IV Severe Decrease in GFR 15-29 Stage V Kidney Failure <15 CREATININE (test code = CREAT) 1.23 mg/dL 0.55-1.30 N CALCIUM (test code = CA) 8.5 mg/dL 8.2-10.1 N - CT LOWER EXTRM W/O C [id number] 16:08:00 [facility] 1970 Sex: M Patient Name: MAEVE CROSS Unit No: [id number] EXAMS: CPT CODE: [id number] [place] LOWER EXTRM W/[place] [address] CT OF THE RIGHT ANKLE WITH SAGITTAL AND CORONAL RECONSTRUCTIONS DIAGNOSIS: There is a comminuted fracture of the calcaneus with impaction of the posterior superior articular facet and diastases of the posterior subtalar joint. A fracture is present in the sustentaculum which extends intothe middle subtalar joint with minimal intra-articular displacement. COMMENT: COMPARISON: No prior exams available. Scans were performed with thin sections and reconstructions were obtained. CT radiation dose optimization is achieved for this examination by the use of a CT protocol in accordance with ACR practice standards and adherence to inspector shells's recommendations. A comminuted calcaneal fracture is present as described. at 1608 Reported and signed by: Gurwinder Lord MD CC: Amanda Fam MD Technologist: MAHSA DE LA ROSA MRI. CTDI: DLP: Trnscrpt: 12/05/2021 (1608) [facility] NAME: MAEVE CROSS JR [address] [facility] PHYS: Amanda Boateng MD : 1970 AGE: 51 SEX: M [place] [address] LOC: Y.RAD PHONE #: [phone] EXAM DATE: 12/05/2021 STATUS: REG CLI FAX #: [phone] RAD #: D/C DT PAGE 1 Signed Report Patient Name: MAEVE CROSS JR Unit No: [id number] EXAMS: CPT CODE: [id number] CT LOWER EXTRM W/[place] [address] (Continued) Orig Print D/T: S: 12/05/2021 (1611) [facility] NAME: MAEVE CROSS [address] [facility] PHYS: Amanda Boateng MD : 1970 AGE: 51 SEX: M [place] [address] LOC: Y.RAD PHONE #: [phone] EXAM DATE: 12/05/2021 STATUS: REG CLI FAX #: [phone] RAD #: D/C DT PAGE 2 Signed Reportnovel coronavirus 2019 inhouse 2021-12-05 00:00:00* Test Item Value Reference Range Interpretation Comme nts novel coronavirus 2019 inhou se (test code = novel coronavirus 2019 inhouse) positive negative A performing lab: (test code = performing lab:) [facility] Notes Date/Time Note Provider Source 2023-04-12 14:25:13 Chief Complaint Patient presents with Physical Patient is fasting. No other issues to discuss Chantelle Falcon MA II [facility] 2021-12-24 14:20:00 [id number] [place] [address] PATIENT NAME: MAEVE CROSS JR ADMIT DATE: 12/24/21 ACCOUNT NO: [id number] ROOM NO: AGE: 51 REPORT TYPE: HISTORY AND PHYSICAL SEX: M ADMITTING PHYSICIAN: ATTENDING PHYSICIAN:Leonard Rodriguez DO ADMISSION DATE: 12/24/2021 CHIEF COMPLAINT: Right calcaneal wound drainage. HISTORY OF PRESENT ILLNESS: This is a 51-year-old male who had a right calcaneal ORIF with Dr. Fam on 12/13/2021 and just recently, this past Sunday, 3 days ago, he had stay superficial sutures removed and was placed into a short leg cast. The patient states that earlier today and yesterday evening, he noticed a feeling of wetness over the posterior aspect in the cast, and he placed something into his cast, and when we pulled it out, it was noted to be red. States concerned that one of his wounds was dehisced. The patient denies any constitutional symptoms, no current signs or symptoms concerning for infection. PAST MEDICAL HISTORY: Denies. PAST SURGICAL HISTORY: ORIF, right calcaneus. SOCIAL HISTORY: Denies any current tobacco use, with rare alcohol use. PHYSICAL EXAMINATION: GENERAL: This is a well-developed and well-nourished male, in no acute distress, resting comfortably in bed. NEUROLOGIC: He is alert and oriented x3 at this time. A brief secondary survey reveals no other areas of concern. Our attention is drawn to the right lower extremity, specifically the right calcaneus. After removal of the cast, the area was inspected. There are no signs or symptoms concerning for infection; however, there is a large area of maceration over the posterior aspect of the right heel extending to lateral aspect. The wounds are healing well with Steri-Strips over each. There is no active drainage from any of the incisions. The patient has intact sensation to light touch in all dermatomes tested, L2-S1. He has intact EHL and FHL as well as knee flexion and knee extension, and foot is warm and well perfused. ASSESSMENT: Postoperative wound drainage, right posterior calcaneal wound. PLAN: Due to presenting nature of the patient, his cast was removed, and the area was inspected. Due to the maceration of the tissue surrounding the wound, the area was left open to air and was allowed to dry. Once there was sufficient drying of the area, Steri-Strips were placed over the wound, and the wounds were redressed, and the patient was placed into a well-padded bulky posterior slab splint with stirrups. The patient states there are no areas of compression or PATIENT NAME: MAEVE CROSS JR discomfort in the splint. He is able to wiggle all of his toes at this time. The patient is set to call Dr. Fam's office on Sunday with a followup on Sunday as well. All questions are answered, and the patient is left in the care of the Emergency Department staff for discharge home. Dictated By: Leonard Rodriguez DO WT: HP:JIM/NANI/BRITTANY Conf#: [id number]/DID#: [id number] Authenticated by Leonard Rodriguez DO On 12/28/2021 05:07:41 PM at 0507 PATIENT NAME: MAEVE CROSS JR [facility] 2021-12-14 07:51:00 [facility] ([facility]) clinical note report#:[id number] report status: signed date:12/14/21 time: 075 patient: maeve cross jr unit #: [id number] room/bed: [address] : [birth year] age: 51 sex: m attend: amanda fam md adm dt: 12/13/21 author: amanda fam md * all edits or amendments must be made on the electronic/computer document * clinical note note: patient doing well overall. pain is ok but did not sleeep well. vital signs: date time temp pulse resp b/p b/p pulse o2 o2 flow fio2 mean ox delivery rate 12/14 0726 nasal 3 cannula 12/14 0449 98.6 69 16 118/74 88.5 100 nasal 3 cannula 12/14 0205 99 nasal 2 28 cannula 12/13 2208 97.5 84 16 132/82 98.4 98 nasal 3 cannula 12/13 2102 95 nasal 2 28 cannula 12/139 nasal cannula 12/13 1954 97.5 88 16 133/79 97.2 97 nasal 3 cannula 12/13 1748 nasal 3 cannula 12/13 1634 98.6 86 14 150/87 108.1 93 nasal cannula 12/13 1602 nasal 3 cannula 12/13 1545 84 14 141/86 97 nasal 3 cannula 12/13 1530 85 15 151/94 97 nasal 3 cannula 12/13 1515 99 15 157/99 97 nasal 3 cannula 12/13 1500 96 15 94/52 97 simple 6 mask 12/13 1458 simple 6 mask 12/13 1445 99.4 81 20 94/52 97 simple 6 mask 12/13 1121 97.7 70 20 129/68 98 exam: splint ntact and loosened nv intact no significant drainage a: s/p orif rt calcaneal fracture-stable ortho p; pt lovenox pain control nd change to to po meds dc home today after pt if pain ok electronically signed by amanda fam md on 12/14/21 at 0752 rpt #:[id number] end of report [facility] 2021-12-13 21:56:00 [id number] [place] [address] patient name: maeve cross jr admit date: 12/13/21 account no: [id number] room no: age: 51 report type: operative report sex: m admitting physician: attending physician:amanda fam md operation date: 12/13/2021 preoperative diagnosis: displaced intraarticular calcaneus fracture, right foot. postoperative diagnosis: displaced intraarticular calcaneus fracture, right foot. procedure performed: open reduction and internal fixation of right calcaneus fracture. surgeon: amanda fam md. assistant director of financial aid: daly mcclelland/tori. the above procedure required an assistant director of financial aid for positioning the patient, prepping the patient, and holding the retractors to provide adequate exposure for the procedure. this allowed the surgeon to have both hands free to perform the surgery itself. retraction for exposure and visualization, and stabilization of the extremity are vital to the procedure such that it will be completed in an accurate, timely, and safe manner. this is not possible without the aid of an assistant director of financial aid. dr. fam is not part of any residency or fellowship training program, and therefore requires the participation of assistant director of financial aid listed above for this procedure. anesthesia: laryngeal mask anesthetic and local. indications: mr. cross is a 51-year-old male, who approximately 10 days ago fell off a ladder and landed on his right foot. he was diagnosed with a calcaneus fracture. he was seen in the clinic. there, we evaluated the patient, discussed the findings with the patient and his mother. we discussed the option of treatment with her. we discussed the risks and benefits of surgery with them. they understood the risks and benefits and desired to go forward. procedure in detail: after informed consent was obtained, the patient was brought back to the main operating room and underwent a laryngeal mask anesthetic. once the anesthesia was assured, a thigh tourniquet was applied and preset at 250 mmhg. the patient received 2 grams of cefazolin. the right lower extremity was then prepped and draped free in the usual sterile fashion. the foot, ankle, and leg were then exsanguinated with an esmarch bandage. the patient name: maeve cross tourniquet was inflated to 250 mmhg. a horizontal incision was made paralleling the plantar aspect of the foot on the medial aspect of the heel and dissection was carried down. we did identify the neurovascular bundle and protected it throughout the medial portion of the procedure. we were able to identify the fracture site and cleared out debris from the fracture site including small bony fragments. we then were able to free up the fracture with a joker elevator and then placed a bone hook into the posterior tuberosity. then, under fluoroscopic imaging, we pulled the tuberosity out to length and brought it out of varus position. we then stabilized it with 2 threaded steinmann pin. the pins were cut short, but left in place. we did verify the position of the reduction, as well as the pins under fluoroscopic imaging. at this point, we then directed our attention to the lateral aspect of the ankle. here, we placed a bump underneath the hip and then we made an oblique incision centered over the sinus tarsi area. the skin was incised and sharp dissection was carried down through the subcutaneous tissue and then we split the extensor digitorum brevis. with retractors in place, we then were able to expose the subtalar joint and cleared out debris including hematoma, as well as some loose pieces of cartilage and bone. we were able to irrigate out the joint with copious amounts of normal saline. we then wrapped it to clear out debris from the fracture site as well. we then placed a lamina research management associate between the anterior process of the calcaneus and the anterior portion of the talus in order to distract the lateral column. once this was done, we were able to free up the lateral joint fragment and we were able to reduce it. there was a segmental portion of the posterior facet, which we were also able to elevate and bring up to an essentially anatomic position. once this was held in position, we then placed 2 guidewires from the synthes 4.0 cannulated screw set from the lateral aspect of the posterior facet into the medial aspect of the posterior facet. once this was done, we exchanged 2 guidewires for partially threaded cannulated screws and had good fixation of the posterior facet. we then removed the lamina research management associate and allowed the lateral column to shorten to its anatomic length. we then placed a guidewire from the synthes 4.5 cannulated screw from the posterior tuberosity into the anterior portion of the calcaneus. we verified this under fluoroscopic imaging and then subsequently exchanged the guidewire for fully threaded cannulated screw in order to stabilize the lateral column. once this was done, we irrigated out the lateral wound and joint with copious amounts of normal saline and closed in layers with 2-0 pds, 3-0 vicryl, and 4-0 prolene. we then directed our attention to the threaded steinmann pins medially. under fluoroscopic imaging, we subsequently exchanged each of the threaded kenneth pins for guidewire for the 4.5 cannulated screw set and then placed to a total of 2 fully threaded 4.5 cannulated screws from the tuberosity into the sustentaculum fragment. we had good fixation and good alignment. we verified the reduction under fluoroscopic imaging, which also included axial/zapien heel views. once this was done, we irrigated out the medial wound and closed it with sutures of 3-0 vicryl and 4-0 prolene. the stab incisions on the posterior aspect of the heel were also closed with 4-0 prolene. we then performed an ankle block and local infiltration with a total of 30 ml of 0.5% bupivacaine plain. a sterile dry compressive dressing was applied. the tourniquet was deflated after approximately 80 minutes and the toes pinked up nicely. a well-padded posterior and u splint was applied. the patient was awakened, extubated, and taken to the postanesthesia care unit in stable condition. he tolerated the procedure well. there were no apparent complications. estimated blood loss: less than 25 ml. patient name: maeve cross jr dictated by: amanda fam md wt: op:jim/wojciech/brittany dd: 12/13/2021 21:56:57 dt: 12/14/2021 01:36:17 conf#: [id number]/did#: [id number] authenticated and edited by amanda fam md on 12/15/21 9:25:24 am electronically signed by amanda fam md on 12/15/21 at 0929 patient name: maeve cross jr [facility] 2021-12-05 16:59:00 [id number] [place] [address] patient name: maeve cross jr admit date: account no: [id number] room no: age: 51 report type: electrocardiogram sex: m admitting physician: attending physician:amanda fam md order: [id number] test reason : pre-op clearances, age >50yrs test date/time stamp: sundec 05 2021 16:59:05 blood pressure : / mmhg vent. rate : 069 bpm atrial rate : 069 bpm p-r int : 146 ms qrs dur : 088 ms qt int : 364 ms p-r-t axes : 150 144 -09 degrees qtc int : 390 ms suspect arm lead reversal, interpretation assumes no reversal unusual p axis, possible ectopic atrial rhythm with undetermined rhythm irregularity right axis deviation pulmonary disease pattern abnormal qrs-t angle, consider primary t wave abnormality abnormal ecg no previous ecgs available [place]jay [place] ([id number]) on 12/08/2021 5:42:55 pm referred by: amanda fam confirmed by:sanjay valle md patient name: maeve cross [facility]
[2024-07-19] MEDS ORDERED: LIDOCAINE 2% MPF 5 ML VIAL ONE (21:19)
[2024-07-19] MEDS ORDERED: TDAP (DIPHTH,PERTUSS(ACELL),TET VAC) 0.5 ML VIAL IMVAC ONE (21:20)
--- NOTE | 2024-07-19 22:23 | EDPHYS ---
Physician Documentation [facility] Name: Gaurav Jacob Jr Age: 53 yrs Sex: Male : 1970 Arrival Date: 07/19/2024 Time: 20:16 Bed 10 Private MD: ED Physician Jaime Almazan HPI: 07/19 21:10 This 53 yrs old Male presents to ER via Ambulatory with complaints of Laceration to cp ankle. 21:10 The patient has a laceration occurred at home, sharp edge of metal. cp 21:10 The laceration(s) is(are) located on the medial side of left ankle. Onset: The cp symptoms/episode began/occurred today. Associated signs and symptoms: The patient has no apparent associated signs or symptoms. Historical: - Allergies: 21:02 meloxicam; hot flashes/flushed; le1 - Immunization history:: Adult Immunizations not up to date, Client reports having NOT received the Covid vaccine. Last tetanus immunization: unknown, Flu vaccine is not up to date. Patient has never been vaccinated. - Infectious Disease History:: Denies. - Social history:: Smoking status: Patient denies any tobacco usage or history of. Patient uses alcohol, occasionally. ROS: 21:15 Constitutional: history per hpi cp 21:15 Skin: Positive for laceration(s), of the medial side of left ankle, 21:15 All other systems are negative, Exam: 21:20 Constitutional: The patient appears in no acute distress, alert, awake, well developed, cp well nourished, 21:20 Head/Face: Normocephalic, atraumatic. cp 21:20 Chest/axilla: Inspection: normal, 21:20 Cardiovascular: Rate: normal, 21:20 Respiratory: the patient does not display signs of respiratory distress, Respirations: normal, no use of accessory muscles, 21:20 Musculoskeletal/extremity: Extremities: noted in the medial side of left ankle: laceration, no active bleeding noted, mild swelling, no bony tenderness to palpation, ROM: full active range of motion, in the left ankle, Perfusion: the extremity is normally perfused throughout, Sensation intact. Vital Signs: 21:00 BP 121 / 76; Pulse 89; Resp 16; Temp 98.5(O); Pulse Ox 98% on R/A; Weight 79.38 kg; le1 Height 5 ft. 5 in. ; Pain 0/10; 22:46 BP 122 / 76; Pulse 84; Resp 16; Temp 98.5(O); Pulse Ox 98% on R/A; Pain 0/10; le1 21:00 Body Mass Index 29.12 (79.38 kg, 165.1 cm) le1 21:00 Pain Scale: Adult le1 22:46 Pain Scale: Adult le1 Laceration: 22:25 Wound Repair of 2.5cm ( 1.0in ) subcutaneous laceration to medial side of left ankle. cp Linear shaped.. Distal neuro/vascular/tendon intact. Anesthesia: Wound infiltrated with 3 mls of 2% lidocaine. Wound prep: Simple cleansing by me. Skin closed with 3 4-0 Prolene using interrupted sutures and sterile technique. Dressed with Bacitracin, 4x4's. Patient tolerated well. MDM: 20:49 Medical Screening Exam initiated cp 21:10 Differential diagnosis: superficial laceration, tendon injury, vascular injury. cp 22:22 Data reviewed: vital signs, nurses notes, and as a result, I will discharge patient. cp 22:22 I considered the following discharge prescriptions or medication management in the emergency department Medications were administered in the Emergency Department. See MAR. Counseling: I had a detailed discussion with the patient and/or guardian regarding the historical points, exam findings, and any diagnostic results supporting the discharge/admit diagnosis, to return to the emergency department if symptoms worsen or persist or if there are any questions or concerns that arise at home. Response to treatment: the patient's symptoms have markedly improved after treatment, and as a result, I will discharge patient. 07/19 20:07 Order name: Dressing - Wound; Complete Time: :28 cp 07/19 20: Order name: Gloves, Sterile; Complete Time: : cp 07/19 20: Order name: Setup Suture Tray; Complete Time: : cp Administered Medications: : Drug: Lidocaine Infiltration (2 %) 5 ml 5 ml Infiltration once; with epinephrine {Note: le1 Given by Jaime HUERTA} Volume: 5 ml; Route: Infiltration; 22:34 Follow up: Response: No adverse reaction le1 : Drug: Boostrix Tdap IM 0.5 ml IM once; as a single dose Route: IM; Site: right deltoid; le1 21:29 Follow up: Response: No adverse reaction le1 22:34 Follow up: Response: No adverse reaction le1 Disposition Summary: 07/19/24 22:23 Discharge Ordered Notes: Location: Home cp Problem: new cp Symptoms: have improved cp Condition: Stable cp Diagnosis - Laceration without foreign body of ankle - left cp Followup: cp - With: Private Physician - When: 10 - 14 days - Reason: Staple/Suture removal Discharge Instructions: - Discharge Summary Sheet cp - Laceration Care, Adult cp Forms: - Medication Reconciliation Form cp - Antibiotic Education cp - Prescription Opioid Use cp - Patient Portal Instructions cp - Leadership Thank You Letter cp Addendum: 07/22/2024 15:33 Co-signature as Attending Physician, Jaime Almazan MD I agree with the assessment and c brewer plan of care. Signatures: Jaime Almazan MD MD cha Page, Corey PA PA cp Carly Rogers RN RN le1 Corrections: (The following items were deleted from the chart) 07/20 17:19 17:18 Constitutional: history per hpi cp cp 17:19 17:18 Skin: Positive for laceration(s), of the medial side of left ankle, cp cp 17:19 17:18 All other systems are negative, cp cp 17:20 07/19 21:10 Wound Repair of 2.5cm ( 1.0in ) subcutaneous laceration to medial side of cp left ankle. Linear shaped.. Distal neuro/vascular/tendon intact. Anesthesia: Wound infiltrated with 3 mls of 2% lidocaine. Wound prep: Simple cleansing by me. Skin closed with 3 4-0 Prolene using interrupted sutures and sterile technique. Dressed with Bacitracin, 4x4's. Patient tolerated well. cp
--- NOTE | 2024-07-19 22:23 | ER ---
Nurse's Notes [facility] Name: Gaurav Jacob Jr Age: 53 yrs Sex: Male : 1970 Arrival Date: 07/19/2024 Time: 20:16 Bed 10 Private MD: Diagnosis: Laceration without foreign body of ankle-left Presentation: 07/19 21:00 Chief complaint: Patient states: cut top of foot while putting together dog kit around le1 1600. Patient family applied liquid skin, steri strips to site to control bleeding. Wrapped in gauze. Coronavirus screen: Vaccine status: Patient reports being unvaccinated. Client denies travel out of the [place] in the last 14 days. At this time, the client does not indicate any symptoms associated with coronavirus-19. Ebola Screen: Patient negative for fever greater than or equal to 101.5 degrees Fahrenheit, and additional compatible Ebola Virus Disease symptoms Patient denies exposure to infectious person. Patient denies travel to an Ebola-affected area in the 21 days before illness onset. No symptoms or risks identified at this time. Initial Sepsis Screen: Does the patient meet any 2 criteria? No. Patient's initial sepsis screen is negative. Does the patient have a suspected source of infection? No. Patient's initial sepsis screen is negative. Risk Assessment: Do you want to hurt yourself or someone else? Patient reports no desire to harm self or others. Onset of symptoms was July 19, 2024. 21:00 Method Of Arrival: Ambulatory le1 21:00 Acuity: MADINA 4 le1 Triage Assessment: 21:06 General: Appears in no apparent distress. comfortable, Behavior is calm, cooperative. le1 Pain: Denies pain. EENT: No deficits noted. Neuro: No deficits noted. Cardiovascular: No deficits noted. Respiratory: No deficits noted. GI: No deficits noted. : No deficits noted. Derm: Wound noted left foot Wound is lac. Musculoskeletal: No deficits noted. Injury Description: Laceration sustained to left foot no active bleeding noted at this time. Historical: - Allergies: 21:02 meloxicam; hot flashes/flushed; le1 - Immunization history:: Adult Immunizations not up to date, Client reports having NOT received the Covid vaccine. Last tetanus immunization: unknown, Flu vaccine is not up to date. Patient has never been vaccinated. - Infectious Disease History:: Denies. - Social history:: Smoking status: Patient denies any tobacco usage or history of. Patient uses alcohol, occasionally. Screenin:07 [facility] ED Fall Risk Assessment (Adult) History of falling in the last 3 months, le1 including since admission No falls in past 3 months (0 pts) Confusion or Disorientation No (0 pts) Intoxicated or Sedated No (0 pts) Impaired Gait No (0 pts) Mobility Assist Device Used No (0 pt) Altered Elimination No (0 pt) Score/Fall Risk Level 0 - 2 = Low Risk Oriented to surroundings, Maintained a safe environment, Educated pt \T\ family on fall prevention, incl call for assistance when getting out of bed, Assessed \T\ reinforced patient's understanding of fall precautions, Hourly rounding (assess needs \T\ fall precautionary measures) done, Used ambulatory aids as needed (educated on \T\ assisted with). Abuse screen: Denies threats or abuse. Denies injuries from another. Nutritional screening: No deficits noted. Tuberculosis screening: No symptoms or risk factors identified. Assessment: 21:07 Reassessment: triage assessment. le1 Vital Signs: 21:00 BP 121 / 76; Pulse 89; Resp 16; Temp 98.5(O); Pulse Ox 98% on R/A; Weight 79.38 kg; le1 Height 5 ft. 5 in. ; Pain 0/10; 22:46 BP 122 / 76; Pulse 84; Resp 16; Temp 98.5(O); Pulse Ox 98% on R/A; Pain 0/10; le1 21:00 Body Mass Index 29.12 (79.38 kg, 165.1 cm) le1 21:00 Pain Scale: Adult le1 22:46 Pain Scale: Adult le1 ED Course: 20:18 Patient arrived in ED. mr 20:22 Jaime Stewart PA is PHCP. cp 20:22 Jaime Almazan MD is Attending Physician. cp 21:00 Carly Rogers RN is Primary Nurse. le1 21:02 Triage completed. le1 21:07 Arm band placed on right wrist. le1 21:07 Bed in low position. Call light in reach. Side rails up X2. Patient has correct armband le1 on for positive identification. Provided Education on: informed to use call light if needed. 22:47 No provider procedures requiring assistance completed. Patient did not have IV access le1 during this emergency room visit. Wound care: was dressed with gauze 2x2, non adherent dressing, gauze wrap. Administered Medications: 21:28 Drug: Lidocaine Infiltration (2 %) 5 ml 5 ml Infiltration once; with epinephrine {Note: le1 Given by Jaime HASTINGS.} Volume: 5 ml; Route: Infiltration; 22:34 Follow up: Response: No adverse reaction le1 21:29 Drug: Boostrix Tdap IM 0.5 ml IM once; as a single dose Route: IM; Site: right deltoid; le1 21:29 Follow up: Response: No adverse reaction le1 22:34 Follow up: Response: No adverse reaction le1 Medication: 22:48 Vaccine Information Statement (VIS) provided today. Questions and/or concerns le1 addressed. VIS edition date: November 26, 2020. Outcome: 22:23 Discharge ordered by . shola 22:48 Discharged to home ambulatory, le1 22:48 Condition: good 22:48 Discharge instructions given to patient, Instructed on discharge instructions, follow up and referral plans. Demonstrated understanding of instructions, follow-up care, 22:48 Patient left the ED. le1 Signatures: Lucía Bhandari, Reg Reg mr Jaime Stewart PA PA cp English, LaKendric RN RN le1 Corrections: (The following items were deleted from the chart) 23:19 22:48 VIS not applicable for this client. le1 le1
[2024-07-19 22:56] VITALS: TEMP 98.5; O2SAT 98
[2024-07-19 22:57] VITALS: BP 122/76
== END 2024-07-19 22:48 | disposition home or self-care (01) ==
LOC: ER 20:16
DX: S91.012A Laceration without foreign body, left ankle, initial encounter (principal); W26.8XXA Contact with other sharp object(s), not elsewhere classified, initial encounter
CPT/HCPCS: 12001; J2003; 96372; 99284